=== PATIENT | female | born 1950 | race Caucasian/White ===

== ENCOUNTER → 2017-02-16 | Outpatient (CLI) | payer OTHER ==
[~2017-02-16] MED LIST: ASPRIN PO; LOMOTIL 0.025 M1 TA1 PO; NAPROXEN500 MG PO; PHENERGAN25 M1 PO; POTASSIUM CHLO10 ME5 PO; PRINIVIL40 MG PO
[2017-02-16 10:50] LABS: BASO % 0.4 % (0.0-1.0); EOS # 0.1 10*3/uL (0.0-0.4); EOS % 1.6 % (1.0-4.0); HEMATOCRIT 37.8 % (37.0-47.0); HEMOGLOBIN 13.4 g/dl (12.0-16.0); LYMPH # 1.4 10*3/uL (1.3-4.4); LYMPH % 20.6 % (27.0-41.0); MEAN CELL VOLUME 83.8 fl (81.0-99.0); MEAN CORPUSCULAR HGB 29.7 pg (27.0-31.0); MEAN CORPUSCULAR HGB CONC 35.4 g/dl (33.0-37.0); MEAN PLATELET VOLUME 10.4 fl (9.6-12.3); MONO # 0.4 10*3/uL (0.1-1.0); NEUT # 4.9 10*3/uL (2.3-7.9); PLATELET COUNT AUTOMATED 211 10*3/uL (130-400); RED BLOOD COUNT 4.51 10*6/uL (4.10-5.10); RED CELL DISTRI WIDTH 12.4 % (0-14.5)
[2017-02-16 11:13] LABS: COL/EPI 133 SECONDS (86-157)
[2017-02-16 11:17] LABS: ALBUMIN 3.6 gm/dl (3.1-4.5); ALKALINE PHOSPHATASE 121 U/L (45-117); BILIRUBIN, TOTAL 0.4 mg/dl (0.2-1.0); BUN 9 mg/dl (7-24); CARBON DIOXIDE 32 mmol/L (21-32); CHLORIDE 92 mmol/L (98-107); CHOLESTEROL 161 mg/dL (<200); EST GLOM FILT AFRICAN AMERICAN > 60 ml/min; GLUCOSE 222 mg/dL (65-99); HDL CHOLESTEROL 48 mg/dl (40-60); LDL CHOLESTEROL 93 mg/dL (9-159); POTASSIUM 3.1 mmol/L (3.5-5.1); SGOT/AST 15 IU/L (3-35); SGPT/ALT 19 U/L (12-78); SODIUM 133 mmol/L (136-145); TOTAL PROTEIN 7.1 gm/dL (6.4-8.2); TRIGLYCERIDES 102 mg/dl (<150); VLDL CHOLESTEROL 20 mg/dL (6-40)
== END | disposition home or self-care (01) ==
LOC: LAB 10:10 → MAMMO 11:00
PROVIDERS: Family Medicine
DX: Z12.31 Encounter for screening mammogram for malignant neoplasm of breast (principal); I10 Essential (primary) hypertension; E55.9 Vitamin D deficiency, unspecified; E78.5 Hyperlipidemia, unspecified

== ENCOUNTER 2017-06-18 14:09 | Inpatient (IN) | payer OTHER ==
[~2017-06-18] VITALS: Ht 160 cm; Wt 60.9 kg
[~2017-06-18 14:09] MED LIST changes: +ASPIRIN CHEWABL81 MG PO; -ASPRIN PO
[2017-06-18 14:13] VITALS: BP 173/64
[2017-06-18] MEDS ORDERED: HYDROCHLOROTHIA25 M1 PO (14:16)
[2017-06-18] MEDS ORDERED: CALCIUM500 M1 PO (14:16)
[2017-06-18 14:25] VITALS: BP 151/60
[2017-06-18 14:46] LABS: BASO % 0.3 % (0.0-1.0); EOS # 0.1 10*3/uL (0.0-0.4); EOS % 1.2 % (1.0-4.0); HEMOGLOBIN 12.8 g/dl (12.0-16.0); LYMPH # 1.4 10*3/uL (1.3-4.4); MEAN CELL VOLUME 84.9 fl (81.0-99.0); MEAN CORPUSCULAR HGB 30.2 pg (27.0-31.0); MEAN CORPUSCULAR HGB CONC 35.6 g/dl (33.0-37.0); MEAN PLATELET VOLUME 9.9 fl (9.6-12.3); MONO # 0.4 10*3/uL (0.1-1.0); MONO % 5.7 % (3.0-9.0); NEUT # 4.5 10*3/uL (2.3-7.9); NEUT % 70.3 % (47.0-73.0); PLATELET COUNT AUTOMATED 219 10*3/uL (130-400); RED BLOOD COUNT 4.24 10*6/uL (4.10-5.10); RED CELL DISTRI WIDTH 12.7 % (0-14.5); WHITE BLOOD COUNT 6.5 10*3/uL (4.8-10.8)
[2017-06-18 14:50] VITALS: BP 144/63
[2017-06-18 14:55] LABS: ACT PARTIAL THROMBO TIME 25.7 SECONDS (20.8-31.5); INTERNATIONAL NORM RATIO 1.1 (2.0-3.5)
[2017-06-18 15:04] LABS: ALBUMIN 3.6 gm/dl (3.1-4.5); ALKALINE PHOSPHATASE 99 U/L (45-117); BUN 10 mg/dl (7-24); CHLORIDE 95 mmol/L (98-107); CREATININE 0.85 mg/dL (0.55-1.02); LIPASE 134 U/L (73-393); SGOT/AST 11 IU/L (3-35); SGPT/ALT 14 U/L (12-78); SODIUM 131 mmol/L (136-145); TOTAL PROTEIN 6.7 gm/dL (6.4-8.2)
[2017-06-18 15:05] LABS: TROPONIN I < 0.015 ng/ml (<0.045)
[2017-06-18 15:14] LABS: BILIRUBIN NEGATIVE (NEGATIVE); BLOOD NEGATIVE (NEGATIVE); CLARITY CLEAR (CLEAR); COLOR YELLOW (YELLOW); GLUCOSE TRACE (NEGATIVE); KETONE NEGATIVE (NEGATIVE); LEUKO ESTERASE NEGATIVE (NEGATIVE); NITRITE NEGATIVE (NEGATIVE); PH 5.5 (5.0-9.0); UROBILINOGEN 0.2 E.U./dl (0.2-1.0)
[2017-06-18 15:19] VITALS: BP 142/56
[2017-06-18 15:33] LABS: RBC 0-2 rbc/hpf (0-2)
[2017-06-18 16:27] VITALS: BP 141/60
--- NOTE | 2017-06-18 19:45 | NUR ---
PT ASSESSED AT THIS TIME, NO COMPLAINTS NOTED. NO S/S OF DISTRESS. RESPIRATIONS EASY AND UNLABORED. HEART RATE 66 PER CM, LUNGS DIMINISHED THROUGHOUT, ACTIVE BSX4 QUADS. PT ALERT ORIENTED AND COOPERATIVE. CURRENTLY LYING IN BED WATCHING TV, CALL LIGHT IN REACH.
[2017-06-18 20:00] VITALS: BP 136/72
--- NOTE | 2017-06-18 21:25 | NUR ---
PT HS MEDICATIONS TAKEN WITH EASE. BLOOD SUGAR OBTAINED, 124. NO COVERAGE GIVEN PER PHYSICIAN ORDER. NO NEW COMPLAINTS AT THIS TIME. INSTRUCTED PT TO USE CALL LIGHT TO ASK FOR ANYTHING THAT SHE MAY NEED THROUGHOUT THE SHIFT. RESPRIATIONS EASY AND UNLABORED. NO S/S OF DISTRESS AT THIS TIME.
[2017-06-19] VITALS: BP 106/46
--- NOTE | 2017-06-19 00:41 | NUR ---
24 HR chart check completed.
--- NOTE | 2017-06-19 04:14 | NUR ---
PT NOT AWAKENED PER [facility] [place] [facility]. RESPIRATIONS EASY AND UNLABORED. RESPIRATIONS 16. HEART RATE 62 PER CM. NO S/S OF PAIN OR DISTRESS. IV SITE PATENT, DRESSING DRY AND IN TACT. ALL SAFETY MEASURES IN PLACE.
--- NOTE | 2017-06-19 06:03 | NUR ---
PT BLOOD SUGAR OBTAINED, 132, NO COVERAGE NEEDED PER PHYSICIAN ORDER. PT RESTING IN BED, EASILY AROUSED, PLEASANT AND COOPERATIVE. NO S/S OF DISTRESS. RESPIRATIONS EASY.
[2017-06-19 07:19] LABS: BASO % 0.5 % (0.0-1.0); EOS # 0.1 10*3/uL (0.0-0.4); EOS % 1.8 % (1.0-4.0); HEMOGLOBIN 11.8 g/dl (12.0-16.0); LYMPH # 2.1 10*3/uL (1.3-4.4); LYMPH % 33.8 % (27.0-41.0); MEAN CELL VOLUME 87.4 fl (81.0-99.0); MEAN CORPUSCULAR HGB 30.3 pg (27.0-31.0); MEAN CORPUSCULAR HGB CONC 34.7 g/dl (33.0-37.0); MEAN PLATELET VOLUME 10.1 fl (9.6-12.3); MONO # 0.5 10*3/uL (0.1-1.0); NEUT # 3.5 10*3/uL (2.3-7.9); NEUT % 55.7 % (47.0-73.0); PLATELET COUNT AUTOMATED 182 10*3/uL (130-400); RED BLOOD COUNT 3.89 10*6/uL (4.10-5.10); RED CELL DISTRI WIDTH 12.8 % (0-14.5); WHITE BLOOD COUNT 6.2 10*3/uL (4.8-10.8)
[2017-06-19 07:37] LABS: BUN 8 mg/dl (7-24); CHLORIDE 102 mmol/L (98-107); CREATININE 0.62 mg/dL (0.55-1.02); PHOSPHOROUS 2.7 mg/dL (2.5-4.9); POTASSIUM 3.9 mmol/L (3.5-5.1); SODIUM 134 mmol/L (136-145)
[2017-06-19 08:00] VITALS: BP 123/61
--- NOTE | 2017-06-19 12:15 | NUR ---
Discharge instructions reviewed with patient/family. Patient receptive and verbalizes understanding. Follow-up care arranged. Written instructions given to patient/family. YAEL KILLIAN
== END 2017-06-19 12:15 | disposition home or self-care (01) | DRG 312 ==
LOC: ED 14:09 → EDHOLD 15:52 → 4E 16:00
PROVIDERS: Internal Medicine Nephrology; Physician Assistant; ADMIT Internal Medicine
DX: R55 Syncope and collapse (principal); I69.354 Hemiplegia and hemiparesis following cerebral infarction affecting left non-dominant side; E87.1 Hypo-osmolality and hyponatremia; E83.42 Hypomagnesemia; D72.810 Lymphocytopenia; E11.9 Type 2 diabetes mellitus without complications; E87.6 Hypokalemia; I10 Essential (primary) hypertension; I25.10 Atherosclerotic heart disease of native coronary artery without angina pectoris; Z79.82 Long term (current) use of aspirin; Z79.899 Other long term (current) drug therapy; Z82.49 Family history of ischemic heart disease and other diseases of the circulatory system; Z90.49 Acquired absence of other specified parts of digestive tract; Z71.6 Tobacco abuse counseling; Z72.0 Tobacco use

== ENCOUNTER 2021-05-28 20:36 | Emergency (ER) | payer OTHER ==
[~2021-05-28] VITALS: Ht 160 cm; Wt 55.8 kg
[~2021-05-28 20:36] MED LIST changes: +CALCIUM500 M1 PO; +HYDROCHLOROTHIA25 M1 PO
[2021-05-28] MEDS ORDERED: VITAMIN D-40010 MCG PO (20:43)
== END 2021-05-28 22:55 | disposition home or self-care (01) ==
LOC: ED 20:36
DX: S62.327A Displaced fracture of shaft of fifth metacarpal bone, left hand, initial encounter for closed fracture (principal); F17.200 Nicotine dependence, unspecified, uncomplicated; Z79.899 Other long term (current) drug therapy; Z79.82 Long term (current) use of aspirin; W17.89XA Other fall from one level to another, initial encounter; Y93.89 Activity, other specified; Y92.89 Other specified places as the place of occurrence of the external cause; Y99.8 Other external cause status

== ENCOUNTER → 2021-06-07 | Outpatient (CLI) | payer OTHER ==
[~2021-06-07] MED LIST changes: +VITAMIN D-40010 MCG PO
== END | disposition home or self-care (01) ==
LOC: ORTHO 00:29
PROVIDERS: ATTEND Orthopaedic Surgery
DX: S62.327D Displaced fracture of shaft of fifth metacarpal bone, left hand, subsequent encounter for fracture with routine healing (principal); M19.032 Primary osteoarthritis, left wrist; X58.XXXD Exposure to other specified factors, subsequent encounter

== ENCOUNTER → 2021-06-28 | Outpatient (CLI) | payer OTHER | END | disposition home or self-care (01) | LOC: ORTHO 04:29 | PROVIDERS: ATTEND Orthopaedic Surgery | DX: S62.327D Displaced fracture of shaft of fifth metacarpal bone, left hand, subsequent encounter for fracture with routine healing (principal); X58.XXXD Exposure to other specified factors, subsequent encounter ==

== ENCOUNTER → 2021-11-06 | Outpatient (CLI) | payer OTHER | END | disposition home or self-care (01) | LOC: LAB 13:02 | PROVIDERS: ATTEND Internal Medicine Nephrology | DX: E87.1 Hypo-osmolality and hyponatremia (principal) ==

== ENCOUNTER → 2021-11-22 | Outpatient (CLI) | payer OTHER | END | disposition home or self-care (01) | LOC: RAD 11-15 14:00 | PROVIDERS: ATTEND Internal Medicine | DX: M80.00XS Age-related osteoporosis with current pathological fracture, unspecified site, sequela (principal); Z78.0 Asymptomatic menopausal state ==

== ENCOUNTER → 2021-12-03 | Outpatient (CLI) | payer OTHER | END | disposition home or self-care (01) | LOC: MAMMO 11-25 11:30 | PROVIDERS: ATTEND Internal Medicine | DX: Z12.31 Encounter for screening mammogram for malignant neoplasm of breast (principal); D24.2 Benign neoplasm of left breast ==

== ENCOUNTER → 2022-10-17 | Outpatient (CLI) | payer OTHER | END | disposition home or self-care (01) | LOC: US 10-16 09:30 | PROVIDERS: ATTEND Internal Medicine | DX: I73.9 Peripheral vascular disease, unspecified (principal) ==

== ENCOUNTER → 2022-11-07 | Outpatient (CLI) | payer OTHER ==
[2022-11-07 14:23] LABS: BASO % 0.4 % (0.0-1.0); EOS # 0.2 10*3/uL (0.0-0.4); EOS % 2.2 % (1.0-4.0); HEMATOCRIT 40.3 % (37.0-47.0); LYMPH # 1.2 10*3/uL (1.3-4.4); LYMPH % 17.6 % (27.0-41.0); MEAN CELL VOLUME 84.5 fl (81.0-99.0); MEAN CORPUSCULAR HGB CONC 35.5 g/dl (33.0-37.0); MEAN PLATELET VOLUME 9.1 fl (9.6-12.3); MONO # 0.6 10*3/uL (0.1-1.0); MONO % 8.8 % (3.0-9.0); NEUT # 4.9 10*3/uL (2.3-7.9); NEUT % 70.9 % (47.0-73.0); PLATELET COUNT AUTOMATED 280 10*3/uL (130-400); RED BLOOD COUNT 4.77 10*6/uL (4.10-5.10); RED CELL DISTRI WIDTH 11.9 % (0-14.5); WHITE BLOOD COUNT 6.9 10*3/uL (4.8-10.8)
[2022-11-07 14:35] LABS: ACT PARTIAL THROMBO TIME 28.5 SECONDS (20.0-32.1); INTERNATIONAL NORM RATIO 1.1 (2.0-3.5)
[2022-11-07 14:52] LABS: BUN 7 mg/dl (9-23); CHLORIDE 94 mmol/L (98-107); POTASSIUM 3.8 mmol/L (3.4-5.1)
== END | disposition home or self-care (01) ==
LOC: LAB 14:04
PROVIDERS: ATTEND Surgery Vascular Surgery
DX: Z01.818 Encounter for other preprocedural examination (principal); I73.9 Peripheral vascular disease, unspecified; R79.1 Abnormal coagulation profile; I49.1 Atrial premature depolarization

== ENCOUNTER → 2022-12-05 | Outpatient (CLI) | payer OTHER ==
[2022-12-05 14:06] LABS: BASO % 0.5 % (0.0-1.0); EOS # 0.2 10*3/uL (0.0-0.4); EOS % 3.2 % (1.0-4.0); HEMATOCRIT 38.1 % (37.0-47.0); LYMPH # 1.4 10*3/uL (1.3-4.4); LYMPH % 20.5 % (27.0-41.0); MEAN CELL VOLUME 87.2 fl (81.0-99.0); MEAN CORPUSCULAR HGB CONC 34.4 g/dl (33.0-37.0); MONO # 0.6 10*3/uL (0.1-1.0); MONO % 8.7 % (3.0-9.0); NEUT # 4.4 10*3/uL (2.3-7.9); NEUT % 66.3 % (47.0-73.0); PLATELET COUNT AUTOMATED 288 10*3/uL (130-400); RED BLOOD COUNT 4.37 10*6/uL (4.10-5.10); RED CELL DISTRI WIDTH 12.2 % (0-14.5); WHITE BLOOD COUNT 6.6 10*3/uL (4.8-10.8)
[2022-12-05 14:22] LABS: ACT PARTIAL THROMBO TIME 27.9 SECONDS (20.0-32.1); INTERNATIONAL NORM RATIO 1.1 (2.0-3.5)
[2022-12-05 14:36] LABS: BUN 8 mg/dl (9-23); CHLORIDE 97 mmol/L (98-107); POTASSIUM 3.6 mmol/L (3.4-5.1)
== END | disposition home or self-care (01) ==
LOC: LAB 13:26
PROVIDERS: ATTEND Surgery Vascular Surgery
DX: Z01.818 Encounter for other preprocedural examination (principal); R79.1 Abnormal coagulation profile; I73.9 Peripheral vascular disease, unspecified

== ENCOUNTER 2025-07-24 06:26 | Inpatient (IN) | payer MEDICARE ==
[~2025-07-24] VITALS: Ht 160 cm; Wt 53.5 kg
[2025-07-24 06:30] VITALS: BP 195/71
[2025-07-24 07:24] LABS: BASO # 0.0 10*3/uL (0.0-0.1); BASO % 0.4 % (0.0-1.0); EOS # 0.1 10*3/uL (0.0-0.4); EOS % 0.6 % (1.0-4.0); MEAN CELL VOLUME 88.4 fl (81.0-99.0); MEAN CORPUSCULAR HGB 30.1 pg (27.0-31.0); MEAN PLATELET VOLUME 9.3 fl (9.6-12.3); MONO # 0.7 10*3/uL (0.1-1.0); MONO % 6.1 % (3.0-9.0); NEUT # 9.3 10*3/uL (2.3-7.9); NEUT % 83.9 % (47.0-73.0); NUCLEATED RED BLOOD CELL 0.0 % (0.0-0.0); NUCLEATED RED BLOOD CELL 0.0 10*3/uL (0.0-0.0); PLATELET COUNT AUTOMATED 227 10*3/uL (130-400); RED CELL DISTRI WIDTH 12.3 % (0-14.5)
[2025-07-24 07:46] LABS: BUN 9 mg/dl (9-23); SGPT/ALT 10 U/L (5-49)
[2025-07-24] MEDS ORDERED: SODIUM CHLORIDE 0.9% 100 ML BAG IV ONE (08:05)
[2025-07-24] MEDS ORDERED: IOHEXOL 350 MG/ML 100 ML VIAL IV ONE (08:05)
[2025-07-24] MEDS ORDERED: AMLODIPINE BESY10 MG PO (11:59)
[2025-07-24] MEDS ORDERED: *Pletal50 MG PO (11:59)
[2025-07-24 12:00] VITALS: BP 115/64
[2025-07-24] MEDS ORDERED: GOOD NEIGHBOR L10 MG PO (12:00)
[2025-07-24 12:06] VITALS: BP 174/84
[2025-07-24 15:00] VITALS: BP 183/60
[2025-07-24] MEDS ORDERED: LIPITOR40 MG PO (18:05)
[2025-07-24] MEDS ORDERED: LOSARTAN POTASS25 M1 PO (18:08)
[2025-07-24] MEDS ORDERED: ECOTRIN325 M1 PO (18:33)
[2025-07-24] MEDS ORDERED: ACETAMINOPHEN 325 MG TAB PO PRN (19:05)
[2025-07-24 20:00] VITALS: BP 159/78
[2025-07-25] VITALS: BP 179/65
[2025-07-25 06:41] LABS: BASO # 0.0 10*3/uL (0.0-0.1); BASO % 0.5 % (0.0-1.0); EOS # 0.1 10*3/uL (0.0-0.4); EOS % 2.3 % (1.0-4.0); MEAN CELL VOLUME 89.7 fl (81.0-99.0); MEAN CORPUSCULAR HGB 30.3 pg (27.0-31.0); MEAN PLATELET VOLUME 9.6 fl (9.6-12.3); MONO # 0.6 10*3/uL (0.1-1.0); MONO % 9.3 % (3.0-9.0); NEUT # 4.3 10*3/uL (2.3-7.9); NEUT % 68.9 % (47.0-73.0); NUCLEATED RED BLOOD CELL 0.0 % (0.0-0.0); NUCLEATED RED BLOOD CELL 0.0 10*3/uL (0.0-0.0); PLATELET COUNT AUTOMATED 204 10*3/uL (130-400); RED CELL DISTRI WIDTH 12.5 % (0-14.5)
[2025-07-25 07:00] LABS: BUN 9 mg/dl (9-23); SGPT/ALT 9 U/L (5-49)
[2025-07-25 08:00] VITALS: BP 187/70
[2025-07-25] MEDS ORDERED: hydroCHLOROthiazide 25 MG TAB PO SCH (10:00)
[2025-07-25] MEDS ORDERED: ATORVASTATIN CALCIUM 40 MG TABLET PO SCH (10:00)
[2025-07-25] MEDS ORDERED: LORATADINE 10 MG TAB PO SCH (10:00)
[2025-07-25] MEDS ORDERED: ASPIRIN 325 MG ENTERIC COATED PO SCH (10:00)
[2025-07-25] MEDS ORDERED: Vitamin D 1,000 IU TAB (25 MCG) PO SCH (10:00)
[2025-07-25] MEDS ORDERED: CILOSTAZOL 100 MG TAB PO SCH (10:00)
[2025-07-25 12:00] VITALS: BP 150/61
[2025-07-25] MEDS ORDERED: POTASSIUM CHLORIDE 20 MEQ TAB PO ONE (13:45)
== END 2025-07-25 16:12 | disposition home or self-care (01) | DRG 204 ==
LOC: ED 06:26 → EDHOLD 11:04 → 5E 11:04
PROVIDERS: Emergency Medicine; ADMIT Internal Medicine; ATTEND Internal Medicine
DX: R91.8 Other nonspecific abnormal finding of lung field (principal); I25.10 Atherosclerotic heart disease of native coronary artery without angina pectoris; G25.81 Restless legs syndrome; M51.16 Intervertebral disc disorders with radiculopathy, lumbar region; E55.9 Vitamin D deficiency, unspecified; E11.51 Type 2 diabetes mellitus with diabetic peripheral angiopathy without gangrene; E53.8 Deficiency of other specified B group vitamins; E78.5 Hyperlipidemia, unspecified; K21.9 Gastro-esophageal reflux disease without esophagitis; K44.9 Diaphragmatic hernia without obstruction or gangrene; I10 Essential (primary) hypertension; Z90.49 Acquired absence of other specified parts of digestive tract; Z79.899 Other long term (current) drug therapy; Z86.73 Personal history of transient ischemic attack (TIA), and cerebral infarction without residual deficits; Z87.891 Personal history of nicotine dependence; Z79.01 Long term (current) use of anticoagulants; Z79.2 Long term (current) use of antibiotics; Z79.82 Long term (current) use of aspirin; Z82.49 Family history of ischemic heart disease and other diseases of the circulatory system; Z82.3 Family history of stroke